=== PATIENT | female | born 1965 ===

== ENCOUNTER 2017-05-31 07:53 | Day surgery (SDC) | payer OTHER ==
[2017-05-31] MEDS ORDERED: Propofol 10 mg/ml Inj (20 ML) ONE (10:19)
[2017-05-31] MEDS ORDERED: Lactated Ringer's 500 ML IV ONE (10:19)
[2017-05-31 10:54] VITALS: TEMP 98
[2017-05-31 11:07] VITALS: O2SAT 100
[2017-05-31 11:18] VITALS: RESP 12
[2017-05-31 11:42] VITALS: BP 103/65; PULSE 52
== END 2017-05-31 11:40 | disposition home or self-care (01) ==
LOC: C.ENDO 07:53
PROVIDERS: ATTEND Internal Medicine Gastroenterology
DX: D12.2 Benign neoplasm of ascending colon (principal); K64.8 Other hemorrhoids; K62.1 Rectal polyp
CPT/HCPCS: 45385; 88305; J2001; J2704; J7120